=== PATIENT | male | born 1995 | race Caucasian/White ===

== ENCOUNTER 2016-10-19 18:04 | Emergency (ER) | payer OTHER ==
[~2016-10-19] VITALS: Ht 182.9 cm; Wt 62.0 kg
[~2016-10-19 18:04] MED LIST: Z.0.NO CURRENT MEDS
[2016-10-19 18:07] VITALS: BP 129/82; PULSE 76; RESP 16; TEMP 98.6; O2SAT 99
--- NOTE | 2016-10-19 18:10 | PD ---
Physical Exam Date Seen by Provider: October 19, 2016 Time Seen by Provider: 18:07 Narrative 21 year old male presents to the emergency department for evaluation of abdominal pain. He thinks he has intestinal parasites. He states his stool looks like there is cotton on it in spots with yellow mucous. He states these symptoms started 5-6 days ago. He states his symptoms started with cold symptoms/sore throat and then moved to possible intestinal parasites. Vital signs reviewed. Patient awaiting bed placement. MDM Supervised Visit with CORI: Fozia Kamara October 19, 2016 18:10
[2016-10-19] MEDS ORDERED: SODIUM CHLOR 0.9% 1000 ML INJ 1,000 ML IV SCH (18:17)
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
[2016-10-19] MEDS ORDERED: ONDANSETRON HCL 4 MG/2 ML VIAL IVP ONE (18:30)
[2016-10-19 19:10] LABS: AUTOMATED NEUTROPHIL # 3.5 TH/MM3 (1.8-7.7); BASOPHIL % 0.3 % (0.0-2.0); EOSINOPHIL # 0.1 TH/MM3 (0-0.4); EOSINOPHIL % 1.4 % (0.0-4.0); HEMATOCRIT 44.3 % (39.0-51.0); HEMO FLAGS DIFF FINAL; LYMPH % 36.9 % (9.0-44.0); LYMPHOCYTE # 2.5 TH/MM3 (1.0-4.8); MEAN CELL VOLUME 84.5 FL (80.0-100.0); MEAN CORPUSCULAR HEMOGLOBIN 29.5 PG (27.0-34.0); MEAN CORPUSCULAR HGB CONC 34.9 % (32.0-36.0); MONO % 8.5 % (0.0-8.0); NEUT % 52.9 % (16.0-70.0); PLATELET COUNT 234 TH/MM3 (150-450); RED BLOOD COUNT 5.24 MIL/MM3 (4.50-5.90); RED CELL DISTRIBUTION WIDTH 13.1 % (11.6-17.2); WHITE BLOOD COUNT 6.7 TH/MM3 (4.0-11.0)
[2016-10-19 19:25] LABS: ANION GAP 8 MEQ/L (5-15); AST (GOT) 23 U/L (15-39); BICARBONATE 29.1 MEQ/L (21.0-32.0); BLOOD UREA NITROGEN 20 MG/DL (7-18); CHLORIDE 106 MEQ/L (98-107); GLOMERULAR FILTRATION RATE 76 ML/MIN (>89); SODIUM (NA) 143 MEQ/L (136-145)
[2016-10-19 19:28] LABS: ALKALINE PHOSPHATASE 68 U/L (45-117); ALT (GPT) 24 U/L (9-52); TOTAL BILIRUBIN ADULT 0.5 MG/DL (0.2-1.0)
[2016-10-19 20:27] VITALS: BP 125/76
== END 2016-10-19 20:28 | disposition home or self-care (01) ==
LOC: NEPD 18:04
DX: B34.9 Viral infection, unspecified (principal); R10.9 Unspecified abdominal pain; J02.9 Acute pharyngitis, unspecified
CPT/HCPCS: 80053; 85025; 87804; 96361; 96374; 99284; J2405; J7030

== ENCOUNTER 2017-02-24 14:23 | Emergency (ER) | payer OTHER ==
[~2017-02-24] VITALS: Ht 182.9 cm; Wt 67.0 kg
[2017-02-24 14:32] VITALS: BP 145/79; PULSE 84; RESP 18; TEMP 98.5; O2SAT 99
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
[2017-02-24] MEDS ORDERED: TETANUS/DIPHTHERIA TOXOID ADULT 0.5 ML VIAL IM ONE (16:15)
== END 2017-02-24 16:19 | disposition home or self-care (01) ==
LOC: PHEFT 14:23
DX: S81.812A Laceration without foreign body, left lower leg, initial encounter (principal); W31.2XXA Contact with powered woodworking and forming machines, initial encounter; F90.9 Attention-deficit hyperactivity disorder, unspecified type
CPT/HCPCS: 12002; 90471; 90714

== ENCOUNTER 2017-03-07 17:54 | Emergency (ER) | payer OTHER ==
[~2017-03-07] VITALS: Ht 182.9 cm; Wt 70.0 kg
[2017-03-07 17:56] VITALS: BP 145/89; PULSE 88; RESP 16; TEMP 98.4; O2SAT 97
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
[2017-03-07] MEDS ORDERED: IBUP800T23 PO (18:44)
[2017-03-07] MEDS ORDERED: MAPA500T13 PO (18:44)
== END 2017-03-07 18:50 | disposition home or self-care (01) ==
LOC: NEPK 17:54
DX: S40.012A Contusion of left shoulder, initial encounter (principal); V29.88XA Motorcycle rider (driver) (passenger) injured in other specified transport accidents, initial encounter; Y92.414 Local residential or business street as the place of occurrence of the external cause
CPT/HCPCS: 73030; 99283